=== PATIENT | female | born 1980 ===

== ENCOUNTER 2018-11-07 19:26 | Emergency (ER) | payer SELFPAY ==
[2018-11-07 19:38] VITALS: BP 138/79
--- NOTE | 2018-11-07 19:51 | UC ---
Skin Complaint HPI - HPI Summary HPI Summary: 38-year-old female presents with superficial laceration to the palm of her left hand. States she was repairing her deck earlier today and she accidentally cut her hand on a conrad nail. Bleeding was easily controlled with some direct pressure prior to arrival. States last tetanus was approximately 15 years ago. Denies fever, chills, erythema, edema, numbness, or tingling. - History of Current Complaint Chief Complaint: UCLaceration Stated Complaint: L HAND LAC Hx Obtained From: Patient Hx Last Menstrual Period: 3 weeks ago Pain Intensity: 0 - Allergy/Home Medications Allergies/Adverse Reactions: Allergies Allergy/AdvReac Type Severity Reaction Status Date / Time No Known Allergies Allergy Verified 11/07/18 19:35 Home Medications: Home Medications Bcp 1 tab PO DAILY 11/07/18 [History] PMH/Surg Hx/FS Hx/Imm Hx Previously Healthy: Yes - Denies significant PMH - Surgical History Surgery Procedure, Year, and Place: WISDOM TEETH - Family History Known Family History: Positive: Non-Contributory - Social History Occupation: Employed Full-time Lives: With Family Alcohol Use: None Substance Use Type: None Smoking Status (MU): Current Every Day Smoker Type: Cigarettes Amount Used/How Often: 1 PPD - Immunization History Most Recent Tetanus Shot: 2003 Review of Systems All Other Systems Reviewed And Are Negative: Yes Constitutional: Negative: Fever, Chills Skin: Positive: Other - See HPI Respiratory: Positive: Negative Cardiovascular: Positive: Negative Gastrointestinal: Positive: Negative Genitourinary: Positive: Negative Musculoskeletal: Positive: Negative Neurological: Positive: Negative Is Patient Immunocompromised?: No Physical Exam - Summary Physical Exam Summary: GENERAL APPEARANCE: Well developed, well nourished, alert and cooperative, and appears to be in no acute distress. CARDIAC: Normal S1 and S2. No S3, S4 or murmurs. Rhythm is regular. There is no peripheral edema, cyanosis or pallor. Extremities are warm and well perfused. Capillary refill is less than 2 seconds. Peripheral pulses intact. LUNGS: Clear to auscultation without rales, rhonchi, wheezing or diminished breath sounds. ABDOMEN: Positive bowel sounds. Soft, nondistended, nontender. No guarding or rebound. No masses or hepatosplenomegally. MUSKULOSKELETAL: ROM intact to all extremities. No joint erythema or tenderness. Normal muscular development. Normal gait. EXTREMITIES: 0.5 cm superficial linear laceration with well approximated wound margins to the palmar aspect of the left hand at the base of the index finger. Bleeding controlled. SKIN: Skin normal color, texture and turgor. Triage Information Reviewed: Yes Vital Signs: Initial Vital Signs Temp 98.4 F 11/07/18 19:35 Pulse 90 11/07/18 19:35 Resp 18 11/07/18 19:35 BP 138/79 11/07/18 19:35 Pulse Ox 98 11/07/18 19:35 Vital Signs Reviewed: Yes Images Hands: 1 - 0.5 cm superficial linear laceration with well approximated wound margins Course/Dx - Course Course Of Treatment: 38-year-old female presents with superficial laceration to the palm of her left hand. States she was repairing her deck earlier today and she accidentally cut her hand on a conrad nail. Bleeding was easily controlled with some direct pressure prior to arrival. States last tetanus was approximately 15 years ago. Denies fever, chills, erythema, edema, numbness, or tingling. Afebrile. Mildly hypertensive otherwise vital signs stable. Patient had a 0.5 cm superficial linear laceration with well approximated wound margins to the palmar aspect of the left hand at the base of the index finger with bleeding controlled that did not require repair. Patient's tetanus was updated. She is to return here or follow up with her primary care provider for any concerns. Wound care, anticipatory guidance, and warning symptoms were reviewed with the patient. Verbalizes understanding and agrees with plan of care. - Diagnoses Provider Diagnosis: Laceration of left hand Discharge ED - Sign-Out/Discharge Documenting (check all that apply): Patient Departure All imaging exams completed and their final reports reviewed: No Studies - Discharge Plan Condition: Stable Disposition: HOME Patient Education Materials: Laceration (ED) Referrals: No Primary Care Phys,NOPCP [Primary Care Provider] - Additional Instructions: The laceration to her left hand was superficial and did not require any repair. Clean the wound with a mild soap and water at least once a day. Apply some antibiotic ointment and cover with a bandage. This should be changed at least once a day or any time the dressing becomes wet or soiled. Use acetaminophen (Tylenol) or ibuprofen (Advil, Motrin) according to directions as needed for pain. Your tetanus was updated today. Be sure to notify your primary care provider so that they can update their records. Watch for signs of infection including fever greater than 100.5 F, severe pain not managed with pain medication, redness that spreads, swelling of the hand/ fingers, or pus draining from the wound. Seek immediate medical attention should any of these occur. - Billing Disposition and Condition Condition: STABLE Disposition: Home
[2018-11-07] MEDS: Tetan/Diph/Pertus SYR(Tdap)* 0.5 ML SYR(BOOSTRIX) use SYR IM ONE (19:52)
== END 2018-11-07 20:00 | disposition home or self-care (01) ==
LOC: UCEAST 19:26
DX: S61.412A Laceration without foreign body of left hand, initial encounter (principal); W45.0XXA Nail entering through skin, initial encounter; Y93.H3 Activity, building and construction; Y92.017 Garden or yard in single-family (private) house as the place of occurrence of the external cause; Y99.8 Other external cause status; F17.210 Nicotine dependence, cigarettes, uncomplicated; Z23 Encounter for immunization
CPT/HCPCS: 90471; 90715; 99201; G0463